=== PATIENT | male | born 1950 | race Caucasian/White ===

== ENCOUNTER 2017-06-26 11:00 | Emergency (ER) | payer OTHER ==
[~2017-06-26] VITALS: Ht 167.6 cm; Wt 66.7 kg
[2017-06-26 11:02] VITALS: Ht 167.6 cm; Wt 66.7 kg
[2017-06-26] MEDS ORDERED: HYDR-905 PO (12:27)
[2017-06-26] MEDS ORDERED: AMOX1TAB10 PO (12:27)
[2017-06-26] MEDS ORDERED: NAPR-688 PO (12:27)
--- NOTE | 2017-06-26 12:33 | ERD ---
ER Documentation Chief Complaint Chief Complaint DENTAL PAIN AND SWELLING ON RT SIDE HPI This 67-year-old male comes in for right upper dental pain and swelling in the right side of his face. He saw a dentist a days ago who told him to take amoxicillin. Said he could not remove the infected tooth until the infection had gone down. He has had swelling on that side since this time. He has no pain or moving up into his face and no ear pain. Says the pain is not that bad right now he does not need pain medicine in the ER. No fevers or chills. ROS All systems reviewed and are negative except as per history of present illness. Medications Home Meds Active Scripts Naproxen* (Naproxen*) 500 Mg Tablet, 500 MG PO BID, #20 TAB Prov:ANGE CRUZ DO 06/26/17 Hydrocodone/Acetaminophen ([place] 7.5-325 Tablet) 1 Each Tablet, 1 EACH PO Q6 for SEVERE PAIN LEVEL 7-10, #15 TAB Prov:ANGE CRUZ DO 06/26/17 Amoxicillin/Potassium Clav (Amox-Clav 875-125 mg Tablet) 875-125 mg Tab, 1 TAB PO BID, #20 TAB Prov:ANGE CRUZ DO 06/26/17 PMhx/Soc Medical and Surgical Hx: pt denies Surgical Hx Hx Alcohol Use: No Hx Substance Use: No Hx Tobacco Use: No Physical Exam Vitals Vital Signs Date Time Temp Pulse Resp B/P Pulse Ox O2 Delivery O2 Flow Rate FiO2 06/26/17 11:02 98.5 104 18 137/97 98 Physical Exam Const: [] No distress, smiling and pleasant Head: Atraumatic Eyes: Normal Conjunctiva ENT: Swelling to right cheek, no mastoid tenderness, no tenderness into the neck, dental carry on tooth #2 where the patient has his pain. There is no fluctuance. Procedures/MDM Dental infection with mild soft tissue swelling. Went up with the patient on Augmentin as well as give him analgesic pain medication for pain control. Explained to him that he needs to have the source of infection, being the tube, removed in order to actually have the seating of infection. Does not have significant pain at this time does not want any pain medication. Do not believe imaging is necessary as the infection is not tracked down into the neck admitting is unlikely has a deep space infection currently. Departure Diagnosis: Primary Impression: Dental infection Condition: Stable Patient Instructions: Dental Pain Additional Instructions: Call [facility] T[facility] for an appointment during the next 2-3 days.See the doctor sooner or return here if your condition worsens before your appointment time. ANGE CRUZ DO Jun 26, 2017 12:33
== END 2017-06-26 12:46 | disposition home or self-care (01) ==
LOC: FTE 11:00
DX: K04.7 Periapical abscess without sinus (principal)
CPT/HCPCS: 99284